=== PATIENT | male | born 1955 ===

== ENCOUNTER → 2024-08-05 | Day surgery (SDC) | payer OTHER ==
[2024-08-01 10:19] VITALS: BP 143/74
[2024-08-01 10:58] LABS: BASO % 0.5 % (0.1-1.2); EOS # 0.26 (0.04-0.54); HEMATOCRIT 41.1 % (40.1-51.0); HEMOGLOBIN 12.9 g/dL (13.7-17.5); LYMPH # 0.66 (1.18-3.74); LYMPH % 10.3 % (19.3-53.1); MEAN CORPUSCULAR HEMOGLOBIN 28.4 pg (25.6-32.2); MONO # 0.46 (0.24-0.82); MONO % 7.2 % (4.7-12.5); NEUT # 4.99 (1.56-6.13); NEUT % 77.5 % (34.0-71.1); PLATELET COUNT 261 K/uL (163-369); RED BLOOD COUNT 4.55 M/uL (4.63-6.08); RED CELL DISTRIBUTION WIDTH 16.1 % (11.6-14.4)
[2024-08-01 11:08] LABS: INR 0.94; PARTIAL THROMBOPLASTIN TIME 30.7 SECONDS (22.0-34.0); PROTHROMBIN TIME 10.3 SECONDS (9.0-11.5)
[2024-08-01 11:56] LABS: ALBUMIN 3.6 gm/dL (3.4-5.0); BILIRUBIN TOTAL 0.25 mg/dL (0.3-1.2); CALCIUM 8.9 mg/dL (8.5-10.1); CREATININE SERUM 2.15 mg/dL (0.70-1.30); GFR 30.72; GLOBULINA 3.1 G/DL (2.4-3.5); POTASSIUM 4.53 mEq/L (3.5-5.1); TOTAL PROTEIN 6.7 gm/dL (6.4-8.2)
[~2024-08-05] VITALS: Ht 177.8 cm; Wt 77.1 kg
[~2024-08-05] MED LIST: ENALAPRILAT DIHYDRATE 1.25 MG/ML VIAL IV ONE; hydrALAZINE HCL 20 MG VIAL IV ONE; hydrALAZINE HCL 20 MG VIAL ONE
== END | disposition home or self-care (01) ==
LOC: ADM 08-01 08:15 → CIR.AMB 06:00
PROVIDERS: ATTEND Internal Medicine
DX: K92.2 Gastrointestinal hemorrhage, unspecified (principal); K31.89 Other diseases of stomach and duodenum